=== PATIENT | male | born 1975 | race Hispanic/Latino ===

== ENCOUNTER → 2018-05-26 | Outpatient (CLI) | payer BC ==
--- NOTE | 2018-05-26 13:20 | Diagnostic Imaging Report ---
PROCEDURE:HEEL/CALCANEOUS BILATERAL TECHNIQUE:2 views of each calcaneus (AP and lateral) INDICATION:Soreness of the left heel. Injury to the right heel a year ago COMPARISON:None. FINDINGS: The right distal tibia is fixed with a sideplate and multiple screws Small calcaneal heel spurs bilaterally, left greater than right. No acute calcaneal abnormality on either side. CONCLUSION: No acute calcaneal abnormality on either side. Dictated by: Cj Chi M.D. on 05/26/2018 at 13:25 Electronically approved by: Cj Chi M.D. on 05/26/2018 at 13:26
== END ==
LOC: RAD 12:51
PROVIDERS: ATTEND Internal Medicine
DX: M79.672 Pain in left foot (principal); M79.671 Pain in right foot; M89.8X7 Other specified disorders of bone, ankle and foot